=== PATIENT | female | born 1990 | race Caucasian/White ===

== ENCOUNTER 2017-07-30 16:25 | Outpatient (CLI) | payer MEDICAID, SELFPAY ==
[2017-07-30 17:03] VITALS: BMI 25.8
[2017-07-30 17:28] LABS: ROM Internal Control Test YES-OK TO RESULT pt. (Internal QC)
[2017-07-30 17:29] LABS: ROM Patient Test Negative (Negative)
--- NOTE | 2017-10-03 12:23 | OB.TRI.NOTE ---
History of Present Illness Date of Service: 07/30/17 Was patient seen by the physician?: No Reason For Visit: ROL Allergies No Known Allergies Allergy (Verified 07/30/17 17:26) NST - FHR Rate Baby A Baseline: 120 Variability:: Moderate Accelerations:: 15 x 15 Decelerations:: Variable NST Reactive:: Yes Uterine Activity:: quiet Impression/Plan Reactive NST for false labor
== END 2017-07-30 18:00 | disposition home or self-care (01) ==
LOC: WPOUT 17:02 → WP 08-01 09:47
PROVIDERS: Visit Provider Obstetrics & Gynecology
DX: O47.9 False labor, unspecified (principal); Z3A.00 Weeks of gestation of pregnancy not specified
CPT/HCPCS: 59050; 84112; 99218; G0378

== ENCOUNTER 2017-08-07 08:35 | Inpatient (IN) | payer MEDICAID, SELFPAY ==
[2017-08-07] MEDS: Lactated Ringers 1,000 ML 50 ML IV ×3 (09:06→12:59)
[2017-08-07 09:08] VITALS: BMI 26.0
[2017-08-07 09:24] LABS: Hematocrit 29.3 % (37-47); Hemoglobin 9.5 g/dl (12.0-15.0); Mean Corp Hgb Conc 32.4 g/gl (32-36); Mean Corpuscular Hgb 24.7 pg (27.0-32.0); Mean Corpuscular Volume 76.1 fL (81-99); Mean Platelet Vol. 9.7 fl (6.2-12.0); Platelet Count 290 K/mm3 (150-450); RBC Distribution Width CV 14.3 % (11.6-14.6); RBC Distribution Width SD 38.7 fl (35.1-43.9); Red Blood Count 3.85 M/mm3 (4.2-5.4); Scan Indicated on CBC? Y/N NO; White Blood Count 16.6 K/mm3 (4.4-11.0)
--- NOTE | 2017-08-07 12:39 | HP.PCM_ITS ---
- Problem List (1) Anemia affecting in third trimester Status: Acute History Date of Admission: 08/07/17 Final KARINA: 08/13/17 Final KARINA Source: US <20 weeks Gestational age: 39 Weeks and 1 Days History of this : This is a 27 year-old, G [3], P [2], at 39 weeks gestational age who presented for regular ctx starting at 0500 this morning. Patient denies LOF, VB or DFM. Allergies No Known Allergies Allergy (Verified 07/30/17 17:26) Home Medications: Home Medications Gummies 1 tab PO DAILY 07/30/17 Smoking Status: Never smoker Alcohol: None Number of Fetus(es): 1 Heart Tracing: FHT baseline 140. moderate variability, + accels, no decels TOCO Analysis: Ctx q 2-5 minutes, palpate mild to moderately strong History - Labs Labs: O negative, all other labs WNL. See [facility] record. - Delivery Expected Delivery Method: Spontaneous Vaginal Describe any other labor & delivery plans:: Patient plans for epidural and immediate [id number] bonding with delayed cord clamping - Visits Number of Visits: >10, MAURICE to [facility] at 35+ weeks from [place]. 4 visit with [facility] providers. Review of Systems Constitutional: Denies: Chills, Fever, Weight Change HEENT: Denies: Head Aches, Sinus Congestion, Sinus Drainage Cardiovascular: Denies: Chest Pain, Palpitations Respiratory: Denies: Cough, Shortness of breath at rest, Sputum production Gastrointestinal: Denies: Abdominal Pain, Nausea, Vomiting Genitourinary: Denies: Dysuria Musculoskeletal: Denies: Joint Pain, Joint Tenderness Skin: Denies: Rash, Wounds Neurological: Denies: Numbness, Tingling, Focal weakness Psychiatric: Denies: Anxiety, Depression, Homicidal Ideations, Suicidal Ideations Hematologic/ Lymphatic: Denies: Easy Bruising, Easy Bleeding Physical Exam Vitals: See nursing note for vital signs and nursing assessment. VSS, Afebrile General: Alert, Oriented x3, No apparent distress Cardiovascular: Regular rate, Regular Rhythm Lungs: Clear to auscultation Abdomen: Bowel Sounds Present, Non-Distended, Gravid, Appropriate for Gestational Age - EFW = 7.25# Extremities:: No edema Estimated gestational size: Appropriate for gestational size Presentation: Cephalic Cervix Dilation (cm): 5 - Patient was 4 cm on admission, patient now 5cm and AROM for clear fluid completed at this time Station: -2 Effacement (%): 80 Assessment/Plan All Active Problems Anemia affecting in third trimester (Acute) A: 27 y/o @ 39.1 wks, Spontaneous Labor, Category I FHT P: 1 ) Patient admitted, IV started and IV fluid bolus of LR given prior to epidural 2) CBC and T+S drawn - patient anemic. Hgb = 9.5 3) AROM done, expectant labor management at this time 4) Anticipate 5) Dr. Zamora notified of admission and plan of care Zainab ALEMAN
[2017-08-07] MEDS: Oxytocin 30 units/NS 500 ml 30 UNITS/500 ML IV.SOLN 334 UNITS IV (14:18)
[2017-08-07] MEDS: Methylergonovine 0.2 MG/ML Ampul IM (14:23)
--- NOTE | 2017-08-07 14:30 | PCM.OB.VAG ---
- Problem List (1) Anemia affecting in third trimester Status: Acute Vaginal Delivery Maternal Presentation: Active Labor Amniotic Membrane Rupture Type: Spontaneous at home Amniotic Fluid Description: Clear Final KARINA: 08/13/17 Gestational age: 39 Weeks and 1 Days Date of Procedure: 08/07/17 Pre-Operative Diagnosis: Spontaneous Labor Post-Operative Diagnosis: Surgery/ Procedure Performed: Spontaneous Vaginal Delivery Anesthesiologist: Enrrique Ayala Type of Anesthesia: Epidural Description of Procedure: Patient found to be C/C/+1 by SVE done by nursing staff. Patient felt spontaneous urge to push. Patient pushed well with urged and delivered viable male over intact perineum at 1414. head delivered OA, restituted to EMMY then ROT. Loose nuchal x 1 noted and was easily reduced. Anterior shoulder then delivered spontaneously followed by posterior shoulder and body. Infant placed on maternal abdomen where the baby was dried and stimulated. with spontaneous cry and respirations. Apgars 9 and 9. Weight pending. Umbilical cord clamped and cut once it stopped pulsing. Placenta then delivered spontaneously via Mitchell mechanism intact with 3VC. FF midline 2FB below umbilicus to massage though steady trickle of blood noted. IV pitocin administered per protocol for active management of 3rd stage followed soon after by IM methergine. Hemostasis then noted. Inspection of vaginal vault revealed no lacerations. Vaginal sweep negative. Sponge and needle count correct. Baby to breast, bonding initiated. Zainab Schmidt APRN-CNM Presentation: Vertex, EMMY Placental Delivery Description: Spontaneous Placenta Disposition: [facility] Cord Vessel Description: 3 Vessels Cord Entanglement: Around neck x 1, loose Drain: Glover to straight drain Estimated Blood Loss: 350 Infant A gender: Male (1 minute): 9 (5 minute): 9 Episiotomy Description: None Laceration: None Medications given after delivery: IV Pitocin, IM Methergin Complications: None
--- NOTE | 2017-08-07 14:44 | DCINST_ITS ---
Discharge Diet: No Restrictions Discharge Activity: Return to Normal Activity, May not drive while taking narcotic pain medications., May Shower May resume sexual activity in: 4-6 weeks Additional Activity Instructions:: Nothing in the vagina for 4-6 weeks. You may return to work/school in 6 weeks. Call your doctor if your incision/area has: Continuous Slow Oozing, Sudden Increased Bleeding, Increased Pain/ Swelling, Increased Redness, Foul Smelling Discharge Call your doctor if you observe: Fever of 101 or Higher, Inability to urinate, Inability to have a bowel movement, Using more than one pad per hour, Shortness of breath, Calf discomfort Additional Instructions: If you experience any of the following, contact your healthcare provider. * Bleeding that soaks a pad every hour for 2 hours * Fever 100.4 or higher * Unrelieved incision or abdominal pain * Swelling, redness, discharge or bleeding from your incision or episiotomy site * Your incision begins to separate * Problems urinating (including inability to urinate or burning while urinating) . * Visual changes * Severe headache * Flu-like symptoms * Pain or redness in one of both of your breasts * Pain, warmth, tenderness or swelling in your legs, especially the calf area * Frequent nausea and vomiting * Symptoms of depression or anxiety If you experience any of the following, call 911 or go to the nearest Emergency Room. * Chest pain * Problems breathing * Seizure activity * Partial or complete paralysis of a body part, slurred speech, weakness or drooping of the face, or a sudden inability to walk or hold your balance Allergies/Adverse Reactions: Allergies No Known Allergies Allergy (Verified 07/30/17 17:26) Medications to take at Discharge Gummies 1 tab PO DAILY 07/30/17 Orders to be completed after discharge: Electric breast pump Location: None Selected Please Follow Up With: Zainab Schmidt CNM When: Call to make an appointment with your doctor in 6 weeks. If you had elevated Blood Pressure or 4th degree laceration you will need to be seen in 2 weeks. Primary Care Physician: Care Physician,No Primary [Primary Care Provider] - Proposed Discharge Date: 08/05/17
[2017-08-07] MEDS: Oxytocin 30 units/NS 500 ml 30 UNITS/500 ML IV.SOLN 167 UNITS IV (14:50)
[2017-08-07] MEDS: Ondansetron 4 MG/2 ML Vial IV (16:18)
[2017-08-07 19:33] VITALS: BP 116/55; PULSE 99; RESP 18; TEMP 36.8
[2017-08-08 00:05] VITALS: BP 108/62; PULSE 82; RESP 17; TEMP 36.9
[2017-08-08] MEDS: Ibuprofen 600 MG Tablet PO ×3 (01:55→17:34)
[2017-08-08 03:35] VITALS: BP 112/56; PULSE 81; RESP 17; TEMP 36.6
[2017-08-08 05:37] LABS: Hematocrit 26.5 % (37-47); Hemoglobin 8.3 g/dl (12.0-15.0); Mean Corp Hgb Conc 31.3 g/gl (32-36); Mean Corpuscular Hgb 24.2 pg (27.0-32.0); Mean Corpuscular Volume 77.3 fL (81-99); Mean Platelet Vol. 9.7 fl (6.2-12.0); Platelet Count 245 K/mm3 (150-450); RBC Distribution Width CV 14.6 % (11.6-14.6); RBC Distribution Width SD 39.5 fl (35.1-43.9); Red Blood Count 3.43 M/mm3 (4.2-5.4); White Blood Count 16.7 K/mm3 (4.4-11.0)
[2017-08-08 05:40] LABS: Scan Indicated on CBC? Y/N NO
--- NOTE | 2017-08-08 07:18 | PCM.PN.OB ---
Patient Problems: Active and Suspected Problems Anemia affecting in third trimester (Acute) Subjective: Patient sitting up in bed bonding with infant at this time, reports no issues overnight. Denies dizziness, JAIN or scotoma. Denies any issues with ambulation or urination. Patient reports increased cramping and discomfort, has taken Motrin with some relief of pain. Patient desires discharge to home tomorrow. Objective: Nipples without cracks or blisters Abdomen NT x 4 quadrants, FF midline 2FB below umbilicus Intact perineum, scant rubra lochia Negative calf tenderness BL to palpation - Physical Exam General: Alert, Oriented x3, Cooperative HEENT: Atraumatic, Normocephalic Neck: Supple Lungs: Clear to auscultation, Normal air movement Cardiovascular: Regular rate, Regular Rhythm, No murmurs Abdomen: Soft, Non Tender, Non-Distended Extremities: No edema, Capillary Refill Less than 3 Seconds Skin: No rashes, No breakdown Musculoskeletal: No Tenderness to Palpation of Joints or Extremities Neurological: Cranial nerves II-XII grossly intact Psych/Mental Status: Normal Affect, Appropriate, Alert and oriented to time, place, person, mood and affect Vital Signs Temp Pulse Resp BP 97.8 F 81 17 112/56 L 08/08/17 03:35 08/08/17 03:35 08/08/17 03:35 08/08/17 03:35 Oxygen Delivery Method Room Air Weight: 166 lb 7.184 oz Body Mass Index (BMI) 26.0 Intake and Output for Last 24 Hours 08/06/17 08/07/17 08/08/17 23:59 23:59 23:59 Intake Total 3193 / 3193 Output Total 4200 / 4200 Balance -1007 / -1007 Laboratory Tests Past 24 Hrs 08/07/17 08/07/17 08/08/17 09:10 09:10 05:20 WBC 16.6 H 16.7 H RBC 3.85 L 3.43 L Hgb 9.5 L 8.3 L Hct 29.3 L 26.5 L MCV 76.1 L 77.3 L MCH 24.7 L 24.2 L MCHC 32.4 31.3 L RDW 14.3 14.6 RDW Differential 38.7 39.5 Plt Count 290 245 MPV 9.7 9.7 Blood Type O NEGATIVE Antibody Screen NEGATIVE Medical Necessity - Tobacco Use Smoking Status: Never smoker Assessment/Plan All Active Problems Anemia affecting in third trimester (Acute) A: 27 y/o G3 now P3, s/p PPD #1, Normal course, Asymptomatic Anemia P: 1) Continue PP orders 2) Iron Carbonyl 45mg PO daily supplement started 3) Anticipate discharge to home tomorrow Zainab ALEMAN
[2017-08-08] MEDS: Senna/Docusate Sodium 1 Tablet PO (08:00)
[2017-08-08 08:05] VITALS: BP 119/68; PULSE 74; RESP 16; TEMP 36.3; O2SAT 99
--- NOTE | 2017-08-08 11:02 | NURSING ---
Reviewed assessment and agree with charting
[2017-08-08 11:52] VITALS: BP 113/56; PULSE 75; RESP 16; TEMP 36.6; O2SAT 98
[2017-08-08 16:13] VITALS: BP 118/65; PULSE 77; RESP 16; TEMP 36.6; O2SAT 100
[2017-08-08 22:09] VITALS: BP 129/58; PULSE 82; RESP 16; TEMP 36.6
[2017-08-08] MEDS: Acetaminophen 500 MG Tablet 1000 MG PO (22:15)
[2017-08-09 02:16] VITALS: BP 105/57; PULSE 67; RESP 16; TEMP 36.8
[2017-08-09] MEDS: Ibuprofen 600 MG Tablet PO (05:13)
--- NOTE | 2017-08-09 07:19 | PN.OBGYN_ITS ---
Patient Problems: Active and Suspected Problems Anemia affecting in third trimester (Acute) Subjective: Patient sitting up in bed, denies any issues at this time. Denies JAIN, scotoma or dizziness. Reports she was sitting and laying down most of yesterday, reports passage of 2 large blood clots after she got out of bed. Patient has noted a decrease in her bleeding since. No other problems or concerns noted. Objective: Nipples without cracks or blisters Abdomen NT x 4 quadrants, FF 3FB below umbilicus +2/4 reflexes in LE, no edema in LE, no calf tenderness noted Scant rubra lochia, intact perineum - Physical Exam General: Alert, Oriented x3, Cooperative HEENT: Atraumatic, Normocephalic Neck: Supple Lungs: Clear to auscultation, Normal air movement Cardiovascular: Regular rate, No murmurs Abdomen: Soft, Non Tender, Non-Distended, Passing Flatus Extremities: No edema, Capillary Refill Less than 3 Seconds Skin: No rashes, No breakdown Musculoskeletal: No Tenderness to Palpation of Joints or Extremities Neurological: Cranial nerves II-XII grossly intact Psych/Mental Status: Normal Affect, Appropriate, Alert and oriented to time, place, person, mood and affect Vital Signs Temp Pulse Resp BP Pulse Ox 98.3 F 67 16 105/57 L 100 08/09/17 02:16 08/09/17 02:16 08/09/17 02:16 08/09/17 02:16 08/08/17 16:13 Oxygen Delivery Method Room Air Weight: 166 lb 7.184 oz Body Mass Index (BMI) 26.0 Intake and Output for Last 24 Hours 08/07/17 08/08/17 08/09/17 23:59 23:59 23:59 Intake Total 3193 / 3193 Output Total 4200 / 4200 Balance -1007 / -1007 Medical Necessity - Tobacco Use Smoking Status: Never smoker Assessment/Plan All Active Problems Anemia affecting in third trimester (Acute) 27 y/o G3 now P3, s/p , PPD #2, Normal Course P: 1) Discharge to home pending discharge 2) Anticipatory PP Discharge Health Teaching done 3) RTC in 6 weeks to [facility] Zainab Schmidt APRN-MEKA
[2017-08-09 08:32] VITALS: BP 118/63; PULSE 95; RESP 16; TEMP 36.8; O2SAT 98
== END 2017-08-09 09:40 | disposition home or self-care (01) | DRG 373 ==
PROVIDERS: Advanced Practice Midwife; Admitting Provider Obstetrics & Gynecology; Visit Provider Obstetrics & Gynecology
DX: O99.02 Anemia complicating childbirth (principal); O69.81X0 Labor and delivery complicated by cord around neck, without compression, not applicable or unspecified; Z3A.39 39 weeks gestation of pregnancy; Z37.0 Single live birth
CPT/HCPCS: 59025; 59050; 85027; 86850; 86900; 99218; J7120; G0378; J2405

== ENCOUNTER → 2021-08-01 | Outpatient (CLI) | payer MEDICAID, SELFPAY ==
[2021-08-08 15:08] LABS: Chlamydia By Nucleic Acid AMP Negative (Negative)
[2021-08-09 11:02] LABS: Gonococcus By Nucleic Acid AMP Negative (Negative)
[2021-08-09 11:03] LABS: HPV Reflexed? NOT INDICATED
== END | disposition home or self-care (01) ==
LOC: LABSPEC 09:54
PROVIDERS: Visit Provider Student in an Organized Health Care Education/Training Program
DX: Z12.4 Encounter for screening for malignant neoplasm of cervix (principal)
CPT/HCPCS: 87491; 87591; 88142